=== PATIENT | female | born 1990 | race Asian ===

== ENCOUNTER 2018-01-30 08:06 | Inpatient (IN) | payer OTHER ==
[~2018-01-30] VITALS: Ht 167.6 cm; Wt 68.0 kg
[~2018-01-30 08:06] MED LIST: ACE3 PO; LOR5 PO; PNV1COMB5
[2018-01-30 09:00] VITALS: BP 134/87; Ht 167.6 cm; Wt 68.0 kg
[2018-01-30] MEDS ORDERED: NORMOSOL R SOLN(*) 1000 ML BAG 1,000 ML IV ONE (09:23)
[2018-01-30] MEDS ORDERED: LR(*) 1000 ML BAG 1,000 ML IV PRN (09:27)
[2018-01-30] MEDS ORDERED: OXYTOCIN 30 UNIT/D5LR 500 ML 500 ML IV PRN ×2 (09:27→10:16)
[2018-01-30] MEDS ORDERED: FAMOTIDINE(*) 20MG/50ML PREMIX 50 ML IVPB PRN (09:27)
[2018-01-30] MEDS ORDERED: DLR(*) 1000 ML BAG 1,000 ML IV PRN (09:27)
[2018-01-30] MEDS ORDERED: fentaNYL CITR 100 MCG/2 ML AMP IVP PRN (09:30)
[2018-01-30] MEDS ORDERED: LIDOCAINE 1% LOCAL 300 MG/30ML INJ PRN (09:30)
[2018-01-30] MEDS ORDERED: METOCLOPRAMIDE 10 MG/2 ML SDV IVP PRN (09:30)
[2018-01-30] MEDS ORDERED: cefOXitin/DEX(*) 2GM/50ML PREM 50 ML IVPB PRN (09:30)
[2018-01-30] MEDS ORDERED: FLUSH 10 ML SYR IVP PRN (09:30)
[2018-01-30] MEDS ORDERED: LIDOCAINE/SOD BICARB 8.4% SYR ONE (09:38)
[2018-01-30] MEDS ORDERED: LIDO/EPI 2% MPF 1:200,000 20ML EPI PRN (10:10)
[2018-01-30] MEDS ORDERED: ePHEDrine 25 MG/5 ML DISP.SYR IVP PRN (10:10)
[2018-01-30] MEDS ORDERED: BUPIVACAINE 0.25% MPF INJ EPI PRN (10:10)
[2018-01-30] MEDS ORDERED: LIDOCAINE/PF 2% 200MG/10ML AMP 200 MG/10 ML AMPUL EPI PRN (10:10)
[2018-01-30] MEDS ORDERED: BUPIVACAINE 0.5% INJ 30ML VIAL EPI PRN (10:10)
[2018-01-30] MEDS ORDERED: FENTANYL/ROPIVACAINE 100 ML BAG EPI PRN (10:10)
[2018-01-30] MEDS ORDERED: fentaNYL CITR 100 MCG/2 ML AMP IT PRN (10:10)
[2018-01-30 10:38] LABS: PLATELET COUNT, AUTOMATED 178 K/uL (150-450)
[2018-01-30] MEDS ORDERED: EPIDURAL KEYS XX PRN (12:00)
--- NOTE | 2018-01-30 15:21 | History & Physical ---
History of Present Illness Age of Patient: 27 : 1 Para or TPAL: 0 EDC per LMP: February 11, 2018 Estimated Gestational Age: 38.2 Chief Complaint leaking water History of Present Illness Presents reporting her water broke this morning at home. Having contractions but tolerable. Pt is varicella nonimmune and is notable for baseline elevated liver enzymes with negative hepatitis panel. Otherwise uncomplicated .Past Medical, Surgical, Family and Obstetric Histories reviewed. Please see ACOG chart. History Allergies: Coded Allergies: No Known Drug Allergies (Verified , 02/23/09) Med Rec Home Meds Reported Medications Pnv #116/Iron Fumarate/Fa/Dha (EXPECTA COMBO PACK) 1 Each Combo..pkg, 1 01/21/18 Review of Systems All Systems Reviewed/Normal: Yes, Except as Noted Exam General Exam Vital Signs Vital Signs Date Time Temp Pulse Resp B/P (MAP) Pulse Ox O2 Delivery O2 Flow Rate FiO2 01/30/18 09:00 98.5 94 20 134/87 (103) 95 Room Air General Apperance: Alert/Awake/No Acute Distress Neuro: No Gross deficits Cardiovascular: Regular Rate and Rhythm Respiratory: No Respiratory Distress, Clear to Auscultation Abdomen: Soft, Non-Tender, Non-Distended, Gravid - Non-Tender Integumentary: Skin Intact without Lesions or Rash Psychological: Alert & Oriented X3, Appropriate Mood & Affect Vaginal Discharge/Fluid?: Clear Fluid Cervical Dialation: 3.5 Cervical Effacement (%): 80 Cervical Consistency: Soft Cervical Position: Anterior Station: -2 Presentation: Vertex Fetus Heart Tone Variabilty: Moderate FHT Accelerations: 15X15 FHT Category: I Medical Decision Making Data Points Result Diagram: 01/30/18 0941 VTE Prophylasis: Adult Deep Vein Thrombosis/Pulmonary: No Pharmacological Contraindicati: Pt at Low Risk for VTE Mechanical Contraindications: Pt at Low Risk for VTE 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 Expecting . SEAN SCOTT MD Jan 30, 2018 15:21
--- NOTE | 2018-01-30 22:39 | Anesthesia OB Pre-Anes Eval ---
History of Present Illness Anesthesia Start Date: Jan 30, 2018 Anesthesia Start Time: 21:40 OB Anesthesia Diagnosis: spontaneous labor EDC: February 11, 2018 : 1 Para: 0 Pain Ratin Result Diagram: 01/30/18 0941 Height (Inches): 66.00 Weight (Pounds): 150 BMI Calculated: 24.21 Past Medical History Medical History: no pertinent history Surgical History: no surgical history Attended Childbirth Classes?: Yes Hx Anesthesia Reactions: No Hx Family Anesthesia Reaction: No Home Meds Reported Medications Pnv #116/Iron Fumarate/Fa/Dha (EXPECTA COMBO PACK) 1 Each Combo..pkg, 1 01/21/18 Allergies: Coded Allergies: No Known Drug Allergies (Verified , 02/23/09) Anesthesia OB ROS ASA Classification: 2 Assessment and Plan Anesthesia Plan: MOIRA BLANDON CRNA Jan 30, 2018 22:37
--- NOTE | 2018-01-30 22:45 | Procedure Note ---
Anesthetic Placement Note Anesthesia Plan: LEB Permit for Anesthesia Signed: Yes Anesthesia Technique: Patient Sitting Anesthesia Prep: Betadine Interspace: L 3-4 Local Anesthetic: 1% Lidocaine Amount Local - cc's: 2 Anesthesia Needle: 17g Touhy/Schliff Anesthesia Attempts: 1 Loss of Resistance: Air Depth of PATI (cm): 4 Catheter Insertion (cm): 5 Catheter Type: Valles - Spring Wound Epidural Dressing: Tegaderm Anesthesia Tray: Lot Number ([id number]), Expiration Date (2018-08-02), Reference Number ([id number]) Comment: Epidural placed without problems. pt tolerated well. Anesthesia Medications: Epidural Test Dose: 1.5 Lido/Epi (1:200,000), Dose - mL (5), Time (2157), Negative Epidural Loading Dose: 0.2% Ropivicaine, With Fentanyl 2mcg/ml, Dose - ml (12) , Time (2205) Epidural Infusion: 0.2% Ropivicaine, With Fentanyl 2mcg/ml, Start Time: (2216) Epidural Pump Setting: Bolus Dose - mL (5), Lockout - Minutes (10), Maintenance Rate - mL/hr (10), Maximum per Hour - mL (20) Complications: None Comment: pain score 1. MOIRA SALOMON CRNA Jan 30, 2018 22:45
--- NOTE | 2018-01-30 23:27 | Labor Progress Note ---
Labor Subjective Progress Notes Subjective Progressed spontaneously to 5 cm with significant back ache and stalling at 5cm. Baby reassuring throughout. Requested epidural and has since progressed to 7 cm. Pitocin augmentation continues. 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 SEAN SCOTT MD Jan 30, 2018 23:27
[2018-01-31] VITALS (19 sets, daily range): BP systolic 99–117; BP diastolic 56–75
[2018-01-31] MEDS ORDERED: CARBOPROST TROMETHAM 250MCG/ML IM ONLY ONE
[2018-01-31] MEDS ORDERED: METHYLERGONOVINE MAL 0.2MG/ML ONE (00:01)
[2018-01-31] MEDS ORDERED: LR(*) 1000 ML BAG 1,000 ML IV SCH (03:45)
[2018-01-31] MEDS ORDERED: INFLUENZA VIRUS VAC 0.5 ML SYR IM ONLY ONE (03:50)
[2018-01-31] MEDS ORDERED: MAGNESIUM HYDROXIDE* 30ML UDCP PO PRN (03:50)
[2018-01-31] MEDS ORDERED: MISOPROSTOL 200 MCG TAB PV ONE (03:50)
[2018-01-31] MEDS ORDERED: LANOLIN OINT 7 GM TUBE TP PRN (03:50)
[2018-01-31] MEDS ORDERED: HYDROCORTISONE 2.5% CR 30GM TB PR PRN (03:50)
[2018-01-31] MEDS ORDERED: ACETAMINOPHEN 325 MG TAB PO PRN (03:50)
[2018-01-31] MEDS ORDERED: OXYTOCIN 10 UNIT/ML SDV IV ONE (03:50)
[2018-01-31] MEDS ORDERED: DLR 500 ML BAG 500 ML IV ONE (03:50)
--- NOTE | 2018-01-31 08:46 | OB/GYN Progress Note ---
OB Subjective Progress Notes Subjective Pain controlled, Tolerating diet and feels weak. Normal lochia. GI: NEG Nausea, NEG Vomiting Pain: Mild OB Objective Physical Exam Vital Signs Date Time Temp Pulse Resp B/P (MAP) Pulse Ox O2 Delivery O2 Flow Rate FiO2 01/31/18 06:00 126 15 111/71 (84) Room Air 01/31/18 04:31 99.3 01/30/18 09:00 95 General Appearance: Alert/Awake/No Acute Distress Neurological: No Gross deficits Cardiovascular: Regular Rate and Rhythm Respiratory: No Respiratory Distress, Clear to Auscultation Abdomen: Fundus Firm Extremities: No Edema Integumentary: Skin Intact without Lesions or Rash Psychological: Alert & Oriented X3, Appropriate Mood & Affect Result Diagram: 01/31/18 0705 Assessment and Plan Problems: (1) Rupture of membranes with clear amniotic fluid (2) care following vaginal delivery Assessment & Plan: Pain controlled, Tolerating diet and feels weak. Normal lochia. may need blood transfusion will see how she transitions today with symptoms SKINNY NUNES MD January 31, 2018 08:46
[2018-01-31] MEDS: IBUPROFEN 800 MG TAB PO SCH ×2 (08:54→16:44)
[2018-01-31] MEDS: DOCUSATE CALCIUM 240 MG CAP PO SCH ×2 (08:54→20:19)
[2018-01-31] MEDS: BENZOCAINE 20% 60 ML BTL TP PRN (08:54)
[2018-01-31] MEDS: GLYCERIN/WITCH HAZEL LEAF 1 PK TOP PRN (08:54)
[2018-01-31] MEDS ORDERED: FERROUS SULFATE 325 MG TAB PO SCH (09:00)
[2018-01-31] MEDS ORDERED: DIPHTH/TETANUS/ACEL. PERTUSSIS IM ONLY ONE (10:00)
[2018-01-31] MEDS ORDERED: MEASLES,MUMP,RUBELLA VAC 0.5ML SUBQ ONE (10:00)
[2018-01-31] MEDS ORDERED: LR 500 ML BAG 500 ML IV ONE ×2 (11:29→11:45)
[2018-01-31] MEDS ORDERED: ACETAMINOPHEN 325 MG TAB PO ONE (12:30)
[2018-01-31] MEDS ORDERED: diphenhydrAMINE 25 MG CAP PO ONE (12:30)
[2018-01-31] MEDS ORDERED: NS(*) 0.9% 500 ML BAG 500 ML IV PRN (12:55)
--- NOTE | 2018-01-31 13:01 | OB/GYN Progress Note ---
OB Subjective Progress Notes Subjective patient feeling weak, trouble ambulating to toilet GI: NEG Nausea, NEG Vomiting Pain: Mild OB Objective Physical Exam Vital Signs Date Time Temp Pulse Resp B/P (MAP) Pulse Ox O2 Delivery O2 Flow Rate FiO2 01/31/18 09:05 99.7 120 18 105/57 (73) 94 Room Air Intake and Output 02/01/18 07:00 Intake Total 0 ml Balance 0 ml Intake Oral 0 ml General Appearance: Alert/Awake/No Acute Distress Neurological: No Gross deficits Cardiovascular: Regular Rate and Rhythm Respiratory: No Respiratory Distress, Clear to Auscultation Abdomen: Fundus Firm Extremities: No Edema Integumentary: Skin Intact without Lesions or Rash Psychological: Alert & Oriented X3, Appropriate Mood & Affect Result Diagram: 01/31/18 1206 Assessment and Plan Problems: (1) Rupture of membranes with clear amniotic fluid (2) care following vaginal delivery (3) Acute blood loss anemia Assessment & Plan: patient considering risks, reviewed symptoms and signs and our concern and discussed benefits. Is currently considering transfusion SKINNY NUNES MD January 31, 2018 13:01
--- NOTE | 2018-01-31 16:08 | DELIVERY NOTE ---
DELIVERY DATE: January 31, 2018 DELIVERY TIME: 0255 hours, placenta delivered 025 SURGEON: Marquise Maynard MD ANESTHESIA: PROCEDURE Forceps-assisted vaginal delivery, outlet forceps delivery. COMPLICATIONS Third degree perineal laceration and hemorrhage. FLUIDS IV crystalloid with Pitocin. ESTIMATED BLOOD LOSS 1000 mL PROCEDURE IN DETAIL The patient has had a long delivery. She presented this morning at 0900 hours, 2 cm dilated, 75% effaced with report of ruptured membranes at approximately 0400 hours. She received Pitocin augmentation through the day, dilating to 3.5 cm by 1500 hours, and 4 cm by 1734 hours. She was 5 cm at 1942 hours and remained 5 cm until 2130 hours, at which time epidural anesthetic was requested and placed. She then continued to progress to 7 cm by 2234 hours, 8 cm by 2337 hours, and again 8 cm by 8 hours. On my exam at approximately 0230 hours the baby was noted to be in the right occiput posterior position. The baby was manually rotated to right occiput anterior position and we began pushes, but it became quickly evident that with the epidural and her first delivery that there was not an effective push. In addition, the head kept rotating back towards the occiput posterior position. Therefore the patient was consented for a forceps-assisted vaginal delivery. The risks, benefits and alternatives were explained, including offering a section, and they preferred to proceed with a forceps delivery. There was also an increased urgency for a more rapid delivery due to a maternal temp of 100.9. There was no tachycardia, however, and it was felt that at that time she was not infected, although the risk was definitely increasing. The patient was set up in the dorsal lithotomy position. The perineum was prepped. A Martinez catheter had been in place and then was removed. Closed Laura forceps was selected and easily placed around the 's head. Over the next several contractions assistance was provided while maternal pushing was affected. The infant's head delivered in the right occiput anterior position over a third degree perineal laceration. The remainder of the followed. There were excellent Apgars of 9 and 9, good tone and cry and color noted. The repair was performed at the same time while noting uterine atony and increase in hemorrhage. Manual massage helped improve , therefore Pitocin was infused IV as well as a single dose of Methergine 0.2 mg administered IM, and 800 mcg of Cytotec was administered. Bleeding from the uterus became in much better control while the repair was continued to be performed. Overall there was approximately 500 mL of blood loss during the repair, while we had already faced approximately 500 mL of blood loss from the delivery and the uterine atony. Overall estimated blood loss was 1000. The patient became hypotensive one time during the repair, nauseous and lightheaded with a blood pressure of 60/40. This did respond to a fluid bolus and 10 mg of ephedrine. The repair was performed by performing single interrupted sutures of 2-0 Vicryl around the anal capsule to re-secure it to its pelvic attachment, and rebuild the perineal body. The vaginal repair was performed with a 2-0 chromic in a running locking stitch, and the perineal body was completed with a 2-0 chromic as is typical for second degree obstetrical repair. No other visible complications. Patient was cleaned up and returned to her bed in stable condition with improved blood pressure and overall condition. Will type and cross two units of blood and hold for administration if needed. MTDD
[2018-01-31] MEDS: HYDROmorphone HCL 2 MG TAB PO PRN ×2 (17:41→22:08)
[2018-02-01 00:19] VITALS: BP 118/71
[2018-02-01] MEDS: IBUPROFEN 800 MG TAB PO SCH ×3 (00:21→17:29)
[2018-02-01 03:09] VITALS: BP 115/63
[2018-02-01] MEDS: HYDROmorphone HCL 2 MG TAB PO PRN ×2 (06:36→16:03)
[2018-02-01] MEDS: FERROUS SULFATE 325 MG TAB PO SCH ×2 (07:59→17:29)
[2018-02-01] MEDS: DOCUSATE CALCIUM 240 MG CAP PO SCH (09:45)
[2018-02-01 10:45] VITALS: BP 119/57
--- NOTE | 2018-02-01 10:53 | OB/GYN Progress Note ---
OB Subjective Progress Notes Subjective Feeling much better after transfusion. Good urine output and light lochia today. Pain in repair but managed well with medication. Breast feeding but no milk yet. GI: NEG Nausea : Voiding Well Pain: Mild OB Objective Physical Exam Vital Signs Date Time Temp Pulse Resp B/P (MAP) Pulse Ox O2 Delivery O2 Flow Rate FiO2 02/01/18 03:09 97.8 103 18 115/63 (80) Room Air 01/31/18 19:22 95 Intake and Output 02/02/18 07:00 Output Total 360 ml Balance -360 ml Output Urine Total 360 ml # Voids 1 General Appearance: Alert/Awake/No Acute Distress Neurological: No Gross deficits Cardiovascular: Normal Rhythm & Peripheral Pulses, Regular Rate and Rhythm ( slightly tachy) Respiratory: No Respiratory Distress, Clear to Auscultation Abdomen: Soft, Non-Tender, Non-Distended, Fundus Firm, Non-Tender Extremities: No Edema Integumentary: Skin Intact without Lesions or Rash Psychological: Alert & Oriented X3, Appropriate Mood & Affect Result Diagram: 02/01/18 0209 Assessment and Plan Problems: (1) Rupture of membranes with clear amniotic fluid (2) care following vaginal delivery Assessment & Plan: Reviewed expectations and precautions. Ok to discharge home today. F/U at 6 weeks. Call with concerns. (3) Acute blood loss anemia Assessment & Plan: Will discharge on PNVs and iron supplementation. SEAN SCOTT MD February 01, 2018 10:53
[2018-02-01] MEDS ORDERED: IBUP800T37 PO (10:54)
[2018-02-01] MEDS ORDERED: FERR-53 PO (10:54)
[2018-02-01] MEDS ORDERED: HYDR2TAB4 PO (10:54)
--- NOTE | 2018-02-01 11:02 | OB/GYN Discharge Summary ---
Discharge Summary Reason for Hosp/Final Diag: (1) Rupture of membranes with clear amniotic fluid (2) care following vaginal delivery Hospital Course & Plan: Reviewed expectations and precautions. Ok to discharge home today. F/U at 6 weeks. Call with concerns. (3) Acute blood loss anemia Hospital Course & Plan: Status post transfusion of 2 units PRBCs. Much improved in symptomatology. Will discharge on PNVs and iron supplementation. Lates Vital Signs Vital Signs Date Time Temp Pulse Resp B/P (MAP) Pulse Ox O2 Delivery O2 Flow Rate FiO2 02/01/18 03:09 97.8 103 18 115/63 (80) Room Air 01/31/18 19:22 95 Weight (Pounds): 150 Result Diagram: 02/01/18 0209 Laboratory Tests 01/31/18 12:06 02/01/18 02:09 Laboratory - CBC/BMP Diagrams 01/31/18 12:06 02/01/18 02:09 Hematology Test 01/30/18 08:30 01/30/18 09:41 02/01/18 02:09 Membranes Rupture (PAMG-1) Positive Neutrophils (%) (Auto) 78.8 % (39.4-72.5) Lymphocytes (%) (Auto) 14.9 % (17.6-49.6) Monocytes (%) (Auto) 5.9 % (4.1-12.4) Eosinophils (%) (Auto) 0.3 % (0.4-6.7) Basophils (%) (Auto) 0.1 % (0.3-1.4) Nucleated RBC Relative Count (auto) 0.1 /100WBC Neutrophils # (Auto) 6.2 K/uL (2.0-7.4) Lymphocytes # (Auto) 1.2 K/uL (1.3-3.6) Monocytes # (Auto) 0.5 K/uL (0.3-1.0) Eosinophils # (Auto) 0.0 K/uL (0.0-0.5) Basophils # (Auto) 0.0 K/uL (0.0-0.1) Nucleated RBC Absolute Count (auto) 0.01 K/uL Peripheral Blood Smear No Y/N Red Blood Count 3.02 M/uL (4.17-5.56) Mean Corpuscular Volume 86.4 fL (80.0-96.0) Mean Corpuscular Hemoglobin 30.2 pg (26.0-33.0) Mean Corpuscular Hemoglobin Concent 35.0 g/dL (32.0-36.0) Red Cell Distribution Width 15.1 % (11.5-14.5) Mean Platelet Volume 7.7 fL (7.2-11.1) Chemistry Test 01/30/18 08:30 01/30/18 09:41 02/01/18 02:09 Membranes Rupture (PAMG-1) Positive Neutrophils (%) (Auto) 78.8 % (39.4-72.5) Lymphocytes (%) (Auto) 14.9 % (17.6-49.6) Monocytes (%) (Auto) 5.9 % (4.1-12.4) Eosinophils (%) (Auto) 0.3 % (0.4-6.7) Basophils (%) (Auto) 0.1 % (0.3-1.4) Nucleated RBC Relative Count (auto) 0.1 /100WBC Neutrophils # (Auto) 6.2 K/uL (2.0-7.4) Lymphocytes # (Auto) 1.2 K/uL (1.3-3.6) Monocytes # (Auto) 0.5 K/uL (0.3-1.0) Eosinophils # (Auto) 0.0 K/uL (0.0-0.5) Basophils # (Auto) 0.0 K/uL (0.0-0.1) Nucleated RBC Absolute Count (auto) 0.01 K/uL Peripheral Blood Smear No Y/N White Blood Count 16.2 k/uL (4.5-11.0) Red Blood Count 3.02 M/uL (4.17-5.56) Hemoglobin 9.1 g/dL (12.0-16.0) Hematocrit 26.1 % (34.0-47.0) Mean Corpuscular Volume 86.4 fL (80.0-96.0) Mean Corpuscular Hemoglobin 30.2 pg (26.0-33.0) Mean Corpuscular Hemoglobin Concent 35.0 g/dL (32.0-36.0) Red Cell Distribution Width 15.1 % (11.5-14.5) Platelet Count 121 K/uL (150-450) Mean Platelet Volume 7.7 fL (7.2-11.1) Condition: Improved Discharge: Home, Self Intermediate Meds Active Scripts Hydromorphone Hcl (HYDROMORPHONE HCL) 2 Mg Tablet, 2-4 MG PO Q4H Y for PAIN, # 20 TAB 0 Refills Prov:MARQUISE TRIPLETT MD 02/01/18 Reported Medications Pnv #116/Iron Fumarate/Fa/Dha (EXPECTA COMBO PACK) 1 Each Combo..pkg, 1 01/21/18 Follow up Referrals: GLUED WOOD TESTER - In 6 Weeks @ [facility] with Marquise Triplett Md Follow up with: Dr. Triplett [phone] Follow up in: 6 wks PP or PO Discharge Diet: As Tolerates Discharge Activity: As Tolerates, No Heavy Lifting x 6 wks, No Heavy Lifting > 10lb, Pelvic Rest Copies to: MARQUISE TRIPLETT MD, TRAVIS MD February 01, 2018 11:02
[2018-02-01] MEDS: GLYCERIN/WITCH HAZEL LEAF 1 PK TOP PRN (13:43)
[2018-02-01] MEDS: BENZOCAINE 20% 60 ML BTL TP PRN (13:43)
[2018-02-01 17:00] VITALS: BP 128/78
== END 2018-02-01 17:55 | disposition home or self-care (01) | DRG 774 ==
LOC: OB 08:06
PROVIDERS: ADMIT Obstetrics & Gynecology; ATTEND Obstetrics & Gynecology
PROC: 10D07Z3 Extraction of Products of Conception, Low Forceps, Via Natural or Artificial Opening (ICD-10-PCS; principal; 2018-01-31)
PROC: 0DQR0ZZ Repair Anal Sphincter, Open Approach (ICD-10-PCS; 2018-01-31)
PROC: 30233P1 Transfusion of Nonautologous Frozen Red Cells into Peripheral Vein, Percutaneous Approach (ICD-10-PCS; 2018-01-31)
DX: O64.0XX0 Obstructed labor due to incomplete rotation of fetal head, not applicable or unspecified (principal); O75.2 Pyrexia during labor, not elsewhere classified; O72.1 Other immediate postpartum hemorrhage; D62 Acute posthemorrhagic anemia; O70.20 Third degree perineal laceration during delivery, unspecified; O90.81 Anemia of the puerperium; I95.9 Hypotension, unspecified; Z3A.38 38 weeks gestation of pregnancy; Z37.0 Single live birth
CPT/HCPCS: 36415; 84112; 85014; 85018; 85025; 85027; 86850; 86900; 86901; 86920; J2210; J2590; J7040; J7120; P9016; Q0163

== ENCOUNTER 2018-02-08 01:32 | Day surgery (SDC) | payer OTHER ==
[2018-01-30 09:00] VITALS: Ht 167.6 cm; Wt 55.8 kg
[~2018-02-08] VITALS: Ht 167.6 cm; Wt 55.8 kg
[~2018-02-08 01:32] MED LIST changes: +FERR-53 PO; +HYDR2TAB4 PO; +IBUP800T37 PO; +PREN1CAP29 PO
[2018-02-08 06:16] LABS: PLATELET COUNT, AUTOMATED 360 K/uL (150-450)
[2018-02-08] MEDS ORDERED: LIDOCAINE/SOD BICARB 8.4% SYR ID ONE (06:30)
[2018-02-08] MEDS ORDERED: NORMOSOL R SOLN(*) 1000 ML BAG 1,000 ML IV PRN (06:30)
[2018-02-08] MEDS ORDERED: FAMOTIDINE 20 MG TAB ONE (06:37)
[2018-02-08] MEDS ORDERED: fentaNYL CITR 100 MCG/2 ML AMP ONE ×3 (06:49→09:24)
[2018-02-08] MEDS ORDERED: ROPIVACAINE 0.2% 20 ML VIAL ONE (07:03)
[2018-02-08 07:09] VITALS: BP 118/86
[2018-02-08] MEDS ORDERED: MIDAZOLAM 2 MG/2 ML VIAL ONE (07:18)
[2018-02-08] MEDS ORDERED: ONDANSETRON 4 MG/2 ML VIAL ONE (07:19)
[2018-02-08] MEDS ORDERED: DEXAMETHASONE SOD PHOS 10MG/ML ONE (07:19)
[2018-02-08] MEDS ORDERED: LIDOCAINE MPF 1% 5 ML VIAL ONE (07:19)
[2018-02-08] MEDS ORDERED: PROPOFOL EMUL(*) 10MG/ML 20 ML 20 ML ONE (07:19)
[2018-02-08] MEDS ORDERED: LR(*) 1000 ML BAG 1,000 ML IV ONE (08:46)
[2018-02-08] MEDS ORDERED: HYDROmorphone HCL 2 MG TAB PO PRN (08:50)
--- NOTE | 2018-02-08 09:02 | Post Operative Note ---
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
[2018-02-08 10:00] VITALS: BP 115/76
[2018-02-08] MEDS ORDERED: ACETAMINOPHEN 500 MG TAB PO PRN (10:30)
[2018-02-08] MEDS ORDERED: ACETAMINOPHEN 500 MG TAB ONE (10:34)
[2018-02-08 10:37] VITALS: BP 107/66
[2018-02-08 10:45] VITALS: BP 102/70
[2018-02-08 11:00] VITALS: BP 106/75
[2018-02-08] MEDS ORDERED: HYDROmorphone HCL 2 MG TAB ONE (11:15)
--- NOTE | 2018-02-08 14:21 | OPERATIVE REPORT 1 ---
EVENT DATE: February 08, 2018 SURGEON: Marquise Triplett MD ANESTHESIOLOGIST: Mychal Acuña MD ANESTHESIA: General LMA. PREOPERATIVE DIAGNOSES 1. One week . 2. Dehiscence of third-degree obstetrical repair with infection. POSTOPERATIVE DIAGNOSES 1. One week . 2. Dehiscence of third-degree obstetrical repair with infection. PROCEDURES PERFORMED 1. Wound debridement. 2. Repair of obstetrical wound. ESTIMATED BLOOD LOSS Minimal. FLUIDS IV crystalloid. DESCRIPTION OF PROCEDURE The patient was placed in the dorsal supine position, placed under general LMA anesthesia, and then moved dorsal lithotomy position. She was prepped and draped. The wound was inspected, and old suture and diseased tissue were debrided until the tissue bled. The external portion of the anal sphincter had become from its attachment, and the external tissue and remaining perineum had . The area was thoroughly irrigated. In the interim, there was noted to be granulation tissue forming. The tissue was also indurated. The repair was performed with 2-0 Vicryl in interrupted figure-of- eight stitches and also simple [id number] stitches to repair the anal capsule back to its attachment in the pelvis, and the remaining perineal body and skin were repaired with a 3-0 chromic as is typical for obstetrical repair. There were no visible complications. Excellent result upon completion. Local anesthetic was administered throughout for pain relief. She was returned to the supine position and taken to recovery in stable condition. [facility]
== END 2018-02-08 10:00 | disposition home or self-care (01) ==
LOC: OR 01:32
PROVIDERS: ATTEND Obstetrics & Gynecology
DX: O90.1 Disruption of perineal obstetric wound (principal); T81.31XA Disruption of external operation (surgical) wound, not elsewhere classified, initial encounter
CPT/HCPCS: 13160; 36415; 84703; 85025; J1100; J2001; J2250; J2405; J2704; J2795; J3010

== ENCOUNTER → 2018-03-07 | Outpatient (CLI) | payer OTHER ==
[2018-01-30 09:00] VITALS: BMI 24.2
[~2018-03-07] MED LIST changes: +DIATRIZOATE MEGL/DIATRIZOA SOD 367 MG/ML SOLN ONE; +IOPAMIDOL 76% 75 ML INFUS BTL 75 ML ONE
--- NOTE | 2018-03-07 15:04 | RADIOLOGY IMAGING REPORT ---
FACILITY: [facility] PATIENT NAME: Sergio Garcia : 1990 MR: [id number] V: [id number] EXAM DATE: ORDERING PHYSICIAN: SKINNY NUNES TECHNOLOGIST: Location: [facility] Patient: Sergio Garcia : 1990 Visit/Account:[id number] Date of Sevice: 03/07/2018 EXAMINATION: CT pelvis with IV contrast HISTORY: The patient in approximately one month with repair of a third degree laceration. There has been a suspected abscess at the repair site, with question of a fistulous connection to the anus. TECHNIQUE: Axial CT images of the pelvis were obtained with IV contrast, with coronal and sagittal 2D reconstructed images. One of the following dose optimization techniques was utilized in the performance of this exam: Autom ated exposure control; adjustment of the mA and/or kV according to the patient's size; or use of an i terative reconstruction technique. Specific details can be referenced in the facility's radiology C T exam operational policy. Contrast: 75 mL of IV Isovue-370. Rectal contrast was also administered. COMPARISON: None. FINDINGS: Pelvic structures: Rectal contrast was administered, filling the visualized distal colon and rect um. There is a tiny collection of contrast and several bubbles of air in the soft tissues of the midl ine perineum and extending slightly to the right. This is located in the region of the posterior vagi nal introitus just anterior to the anal sphincter, and measures approximately 0.6 x 1.5 cm (axial emmy ge 79). A discrete connection to the adjacent anal canal is not defined by CT, but enteric contrast i n this small collection is suspicious for an underlying fistulous connection. The uterus and adnexal structures are unremarkable by CT. Unremarkable urinary bladder. Bowel and peritoneum: Visualized portions of the small bowel and colon are normal in caliber. No argelia l wall thickening. No pelvic free fluid. Vessels: Negative. Pelvic lymph node assessment: Negative. Musculoskeletal/body wall: Visualized osseous structures are unremarkable. The visualized lower abdom inal wall is intact. IMPRESSION: 1. Small collection of contrast and air along the midline perineum just anterior to the anal sphincte r in the region of the posterior vaginal introitus. A discrete connection to the anal canal is not de fined by CT, but presence of enteric contrast in the small collection is suspicious for an underlying fistulous connection. 2. No other acute findings in the pelvis. Findings were discussed with SKINNY NUNES at 03/07/2018 2:58 PM. Report Dictated By: Edilson Ratliff MD at 03/07/2018 2:31 PM Report E-Signed By: Edilson Ratliff MD at 03/07/2018 2:59 PM [id number]
== END ==
LOC: CT 12:40
PROVIDERS: ATTEND Obstetrics & Gynecology
DX: N82.1 Other female urinary-genital tract fistulae (principal); N94.89 Other specified conditions associated with female genital organs and menstrual cycle
CPT/HCPCS: 72193; Q9967